=== PATIENT | female | born 1970 | race Two or more races ===

== ENCOUNTER 2020-02-12 07:57 | Day surgery (SDC) | payer OTHER ==
[2020-02-12] MEDS ORDERED: PERCOCET 5-3251 EACH PO (12:43)
== END 2020-02-12 13:50 | disposition home or self-care (01) ==
LOC: CIR.AMB 07:57
PROVIDERS: ATTEND Surgery
DX: C50.412 Malignant neoplasm of upper-outer quadrant of left female breast (principal)
CPT/HCPCS: 36561; C1751

== ENCOUNTER 2020-02-26 13:10 | Outpatient (CLI) | payer OTHER ==
[~2020-02-26 13:10] MED LIST: PERCOCET 5-3251 EACH PO
== END 2020-02-26 13:12 | disposition home or self-care (01) ==
LOC: NUCLEAR 13:10
PROVIDERS: ATTEND Internal Medicine
DX: C50.412 Malignant neoplasm of upper-outer quadrant of left female breast (principal); I42.7 Cardiomyopathy due to drug and external agent
CPT/HCPCS: 78472; 78496; A9560

== ENCOUNTER 2020-07-08 05:45 | Day surgery (SDC) | payer OTHER | END 2020-07-08 17:10 | disposition home or self-care (01) | LOC: CIR.AMB 05:45 | PROVIDERS: ATTEND Surgery | DX: D05.11 Intraductal carcinoma in situ of right breast (principal); D24.2 Benign neoplasm of left breast; Z90.13 Acquired absence of bilateral breasts and nipples; Z20.828 Contact with and (suspected) exposure to other viral communicable diseases ==

== ENCOUNTER 2022-03-22 09:27 | Outpatient (CLI) | payer OTHER | END 2022-03-22 09:47 | disposition home or self-care (01) | LOC: NUCLEAR 09:27 | PROVIDERS: ATTEND Internal Medicine Cardiovascular Disease | DX: C50.919 Malignant neoplasm of unspecified site of unspecified female breast (principal) ==

== ENCOUNTER 2023-04-05 05:15 | Day surgery (SDC) | payer OTHER ==
[~2023-04-05] VITALS: Ht 162.6 cm; Wt 62.1 kg
[~2023-04-05 05:15] MED LIST changes: +ANASTROZOLE1 MG PO
[2023-04-05] MEDS ORDERED: TRAM1TAB98 PO (10:13)
== END 2023-04-05 11:25 | disposition home or self-care (01) ==
LOC: CIR.AMB 05:15
PROVIDERS: ATTEND Surgery
DX: C50.412 Malignant neoplasm of upper-outer quadrant of left female breast (principal); Z20.822 Contact with and (suspected) exposure to COVID-19